=== PATIENT | female | born 2000 | race Caucasian/White ===

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

== ENCOUNTER → 2024-06-03 | Outpatient (CLI) | payer OTHER ==
[2024-06-03 16:31] LABS: CALCIUM LEVEL 9.9 MG/DL (8.5-10.1); IRON (FE) 53 UG/DL (50-170); PHOSPHORUS LEVEL 3.6 MG/DL (2.5-4.9)
[2024-06-03 16:32] LABS: PERCENT SATURATION 15.8 % (13.2-45.0); TOTAL IRON BINDING CAPACITY 335 UG/DL (250-425)
[2024-06-03 16:35] LABS: TOTAL 25(OH) VITAMIN D 49.3 NG/ML (20.0-100.0)
[2024-06-03 16:36] LABS: FOLATE > 24.00 NG/ML (>5.4); THYROID STIMULATING HORMONE 1.152 uIU/ML (0.55-4.78)
[2024-06-03 16:37] LABS: FREE T4 1.38 NG/DL (0.89-1.76); VITAMIN B12 LEVEL 802 PG/ML (211-911)
[2024-06-03 16:38] LABS: MONO SCRN NEGATIVE (NEGATIVE)
== END ==
LOC: M PLALAB 14:49 → M LAB 14:49
PROVIDERS: ATTEND Physician Assistant Medical
DX: R53.83 Other fatigue (principal)

== ENCOUNTER → 2025-04-09 | Outpatient (REF) | payer OTHER ==
[2025-04-09 18:35] LABS: Trichomonas vaginalis (AMP) NOT DETECTED (NEGATIVE)
[2025-04-09 18:58] LABS: GC DNA AMPLIFICATION NEGATIVE (NEGATIVE)
== END ==
LOC: M SFHCWAGY 16:53
PROVIDERS: ATTEND Physician Assistant
DX: Z12.4 Encounter for screening for malignant neoplasm of cervix (principal); Z11.3 Encounter for screening for infections with a predominantly sexual mode of transmission
CPT/HCPCS: 87661; 87810; 87850; G0123